=== PATIENT | male | born 1985 | race Caucasian/White ===

== ENCOUNTER → 2023-09-03 | Outpatient (CLI) | payer BC ==
--- NOTE | 2023-09-09 23:07 | SLS ---
SLEEP STUDY This is a home sleep study. HISTORY OF PRESENT ILLNESS: This patient is 38 years old with history of snoring and sleep fragmentation, chronic hypersomnia, [place]ock[place] score of 17. Overall clinical suspicion was high for obstructive sleep apnea. The patient was given a home sleep study. PERTINENT PHYSICAL FINDINGS: The patient has an Hockessin score of 17, body mass index of 42 with a weight of 293 and a height of 5 feet 10 inches. TECHNICAL DESCRIPTION: The [employer] system was used to complete the home sleep study. This is a type 3 home sleep study. Total recording duration was 7 hours and 16 minutes. This study started at 10:15 p.m., ended at 5:32 a.m. There was more than 7 hours of flow on oxygen saturation evaluation and this was an adequate study. RESULTS: Respiratory analysis showed a total of 209 obstructive hypopneas and 449 obstructive apneas. The resulting AHI was 92 consistent with severe obstructive sleep apnea. OXYGENATION ANALYSIS: The baseline pulse ox while awake was 96%. Average pulse ox during sleep was 88%. Lowest pulse ox was 60% and the patient spent approximately 2 hours and 51 minutes of the sleep time below pulse ox of 89%. This is consistent with severe nocturnal oxygen desaturation. CARDIAC ANALYSIS: Average heart rate was 75, minimum heart rate was 55, maximum heart rate was 115. ASSESSMENT: 1. Severe symptomatic obstructive sleep apnea with an AHI of 92. 2. Severe nocturnal oxygen desaturation with a minimum pulse ox of 60%. 3. Chronic hypersomnia. Hockessin score of 17. 4. Obesity with a BMI of 44. PLAN: This is a case of severe symptomatic obstructive sleep apnea. The patient will obviously need therapy. I am making recommendations to proceed with CPAP therapy for this patient. The patient needs to come into the sleep center to undergo an appropriate CPAP titration. Following that, the patient will be given CPAP therapy. MMODL / IJN: [id number] /
== END ==
LOC: 3 N SLEEP 13:07
PROVIDERS: ATTEND Internal Medicine Critical Care Medicine
DX: G47.33 Obstructive sleep apnea (adult) (pediatric) (principal); G47.10 Hypersomnia, unspecified; G47.36 Sleep related hypoventilation in conditions classified elsewhere; E66.9 Obesity, unspecified; Z68.41 Body mass index [BMI] 40.0-44.9, adult

== ENCOUNTER 2023-10-03 19:38 | Outpatient (CLI) | payer BC ==
--- NOTE | 2023-10-10 21:39 | P.PCN ---
Date of Procedure: 10/03/23 Description of Procedure: CPAP titration report Date of services 10/03/2023 Pertinent history 38-year-old male patient diagnosed having severe symptomatic obstructive sleep apnea with an AHI of 92. He suffers from chronic hypersomnia with an [place] score of 17. He is coming in for a CPAP titration Pertinent physical findings Height is 5 feet and 10 inches, weight is 293 and a body mass index is 42 Technical description The patient was studied using a standard complex polysomnography protocol that included recording of the 2 EKG, Central, occipital and frontal EEG, right and left outer canthus EOG, submental EMG, right and left anterior tibialis EMG, respiratory airflow by thermocouple and or pressure/flow transducer, respiratory efforts by abdominal and thoracic PVDF belts, oxygen saturation by cable oximetry. Position by observation synchronized the PSG. Stepwise CPAP titration was done to limit obstructive respiratory events equipment used: [employer]. Sleep characteristics The total recording duration was 422 minutes. The total sleep time was 315.0 minutes. Latency to sleep onset was 26.5 minutes. The latest REM sleep was 78 minutes. The sleep architecture was characterized by 0.6% stage I, 65.5% stage II, 15.5% stage III, and 18.4% REM sleep. The wake after sleep onset time was 82.5 minutes. The total arousal index was 3.6 Respiratory analysis CPAP titration was started initially at the CPAP pressure of 5 cm of water and the pressure was gradually increased by increments of 1 cm to reach maximum pressure of 14 cm of water. All sleep stages were observed and the patient assumed various body positions. This was successful titration and at the comple tion of the titration, there was complete elimination of the obstructive respiratory events even during REM sleep and the patient was able to maintain an oxygen saturation above 90%. Sleep continuity summary The patient had total of 19 arousals with an index of 3.6. The respiratory arousal index was 0 Periodic limb movement activity The patient had total of 5 periodic limb movements with arousals with an index of 1.0 Cardiac summary Average heart rate was 70 minimum heart rate of 65 and a maximum heart rate of 77. No cardiac arrhythmias noted Assessment Severe symptomatic obstructive sleep apnea with an AHI of 92.9 and the patient underwent successful CPAP titration Severe nocturnal oxygen desaturation recorded with CPAP therapy Chronic hypersomnia [place] score of 17 Morbid obesity with a BMI of 44 Plan Initiate CPAP therapy with a pressure of 14 cm of water with a C-Flex of 3. The patient will be offered a large size AirFit and 20 fullface mask. The patient will start CPAP therapy and the patient will see me back in the office in 30 to 90 days to assess clinical response and compliancy. Encourage weight loss. Maintain good sleep hygiene measures. Will continue to follow.
== END 2023-10-04 05:35 | disposition home or self-care (01) ==
LOC: 3 N SLEEP 19:38
PROVIDERS: ATTEND Internal Medicine Critical Care Medicine
DX: G47.33 Obstructive sleep apnea (adult) (pediatric) (principal); G47.10 Hypersomnia, unspecified; G47.36 Sleep related hypoventilation in conditions classified elsewhere; E66.01 Morbid (severe) obesity due to excess calories; Z68.41 Body mass index [BMI] 40.0-44.9, adult
CPT/HCPCS: 95811